=== PATIENT | female | born 1990 | race Caucasian/White ===

== ENCOUNTER 2017-04-18 10:57 | Outpatient (RCR) | payer OTHER ==
[~2017-04-18 10:57] MED LIST: LEVO1TAB9 PO; LOR5/325 PO
--- NOTE | 2017-04-20 10:01 | RADIOLOGY IMAGING REPORT ---
FACILITY: [facility] - [place] PATIENT NAME: Mildred Marino : 1990 MR: [id number] V: [id number] EXAM DATE: ORDERING PHYSICIAN: DELILAH BALLARD TECHNOLOGIST: Location: [facility] - [place] Patient: Mildred Marino : 1990 Visit/Account:[id number] Date of Sevice: 04/20/2017 MRI RIGHT FOOT W/O CONTRAST HISTORY: Pain. Evaluate for stress reaction. ADDITIONAL HISTORY: None. TECHNIQUE: Multiplanar multisequence magnetic resonance imaging of the right foot without intraveno us contrast. CONTRAST: None. COMPARISON: None. FINDINGS: Bones and joints: Mild bone marrow edema at the plantar aspect of the base of the third metatarsal. N o bone marrow edema within the adjacent lateral cuneiform. TMT joints are well aligned. Joint effusion: Negative Extensor tendons: Negative Flexor tendons: Negative Visualized plantar fascia: Negative Soft tissues: Negative IMPRESSION: 1. Mild bone marrow edema within the plantar aspect of the base of the third metatarsal. No bony reich ges within the adjacent lateral cuneiform. Findings more likely secondary to stress reaction rather t mullen early degenerative change. Report Dictated By: Aquiles Matias MD at 04/20/2017 9:38 AM Report E-Signed By: Aquiles Matias MD at 04/20/2017 9:58 AM WSN:[id number]
== END 2017-04-22 18:00 | disposition home or self-care (01) ==
LOC: MRI 10:57 → EDSTATUS 10:57 → MRI 04-22 18:00
PROVIDERS: ATTEND Orthopaedic Surgery
DX: M79.671 Pain in right foot (principal)
CPT/HCPCS: 73718

== ENCOUNTER 2017-07-07 13:40 | Outpatient (RCR) | payer OTHER ==
--- NOTE | 2017-04-23 16:36 | PT INITIAL EVALUATION ---
MEDICAL DIAGNOSIS: Right Foot Stress Reaction TREATMENT DIAGNOSIS: Right Foot Stress Reaction DATE OF ONSET: 03/14/17 SUBJECTIVE: Mildred is a 26 year-old female presenting to physical therapy following a stress reaction injury of her plantar aspect of the base of the third metatarsal. Pt reports that there was no sudden moment of injury, but attributes it to likely prolonged walking over a trip to [place] in January,, or occupational requirements as a nurse. Pt reported that the foot started hurting around the end of February,. Since pt has unloaded the foot per MD recommendation with use of crutches at home and scooter at work , but reports little change in pain status. Pt had recent MRI confirming lingering presence of bone edema. Pt currently rates achy pain at a 1/10 while sitting without pressure on the foot but pain is increased to 4/10 if she is active, or puts weight on the foot. REHAB PROBLEM LIST: Increased Pain Decreased ROM Decreased Strength Decreased Endurance Decreased Function Decreased ADL's Decreased Mobility Decreased Gait PREVIOUS MEDICAL HISTORY: See EMR OCCUPATION: Nurse on Med/Surg floor at [employer] OBJECTIVE: ROM: Ankle ROM (L,R): DF: 92,92, PF: 56, 51, Inversion: 58, 50, Eversion: 35, 26 Posture: Foot posture significant for decreased arch B. Palpation: Pt is tender to palpation along the base of the 3rd, 4th, and 5th metatarsals. Pt is also tender to palpation along the distal aspect of the plantar fascia. Sensation: Sensation intact to light touch, pt denies any numbness or tingling. Special Tests: (-) Lateral compression test, (+) plantar pain with ankle DF and 1st digit ext. Gait: Pt ambulates with R foot elevated on scooter. ASSESSMENT: Pt shows signs and symptoms consistent with stress reaction diagnosis of the base of the 3rd metatarsal as well as with mild plantar fascitis. Physical therapy is indicated to address the above listed impairments and return pt to prior level of function in all ADL's and occupational activities. Short Term Goals In 2 weeks pt will increase R foot ROM to equal to that of the L foot for improved mobility and function with ADL's. In 4 weeks pt will be able to walk 4 laps around the track without increased pain and normal gait mechanics for functional mobility with occupation and ADL' s. In 4 weeks pt will be independent with independent HEP to maintain functional strength and mobility with ADL's and work related activities. Patient's Goals Decrease pain, return to work as a nurse PLAN: Patient to be seen for Manual Therapy/STM/MET Strengthening/condition Ice/Heat Range of Motion Ultrasound Stretching Iontophoresis Neuromuscular Re-ed Closed Chain Program Electrical Stim Gait Trg/Balance Trg Biofeedback Home Exercise Program Mech./Manual Traction Therapeutic Activities 2-3x/Week for 6 Weeks If you have any questions, comments, or concerns about this report or plan, please contact me at . Thank you, Xiomara Bertrand, PT, DPT, CLT MTDD
--- NOTE | 2017-05-19 09:50 | PT PLAN OF CARE ---
Physician: Agusto Woods MD Patient is being seen: 3x/Week Therapist: Xiomara Bertrand, PT, DPT, CLT Medical Diagnosis: Right Foot Stress Reaction Treatment Diagnosis: Right Foot Stress Reaction Date of Onset: 03/14/17 Date of Initial Evaluation: 04/22/17 Date patient was last seen: 05/18/17 Number of treatments: 11 Number of cancellations/No shows: 0 INTERVENTIONS: Manual Therapy/STM/MET Strengthening/condition Ice/Heat Range of Motion Ultrasound Stretching Iontophoresis Neuromuscular Re-ed Closed Chain Program Electrical Stim Gait Trg/Balance Trg Biofeedback Home Exercise Program Mech./Manual Traction Therapeutic Activities GOALS: In 3 weeks pt will increase R foot ROM to equal to that of the L foot for improved mobility and function with ADL's. In Progress In 6 weeks pt will be able to walk 4 laps around the track without increased pain and normal gait mechanics for functional mobility with occupation and ADL' s. In Progress In 6 weeks pt will be independent with independent HEP to maintain functional strength and mobility with ADL's and work related activities. 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 Pt is no longer utilizing the scooter for ambulation and is able to perform 25% weight bearing on the L LE without any increased physiological changes from stress reaction. Pt shows gradual progression towards single crutch use for ADL's. Ankle mobility continues to show improvements with associated improved gait mechanics. Further physical therapy is indicated for this patient to continue progress towards ambulation without AD for functional movement with work related activities. ROM: Ankle ROM (L,R): DF: 9, 5, PF: 60, 50, Inversion: 20, 20, Eversion: 18, 15 Palpation: Pt is tender to palpation along the base of the 3rd, 4th, and 5th metatarsals. Pt is also tender to palpation along the distal aspect of the plantar fascia. Special Tests: (-) Lateral compression test, (+) plantar pain with ankle DF and 1st digit ext. Gait: Pt is able to ambulate 2 laps with a single crutch prior to onset of pain. If you have any questions or concerns, please feel free to contact me at [phone]. Thank you, Xiomara Bertrand, PT, DPT, CLT MTDD
--- NOTE | 2017-06-13 15:01 | PT PLAN OF CARE ---
Physician: Agusto Woods MD Patient is being seen: 3x/Week Therapist: Xiomara Bertrand, PT, DPT, CLT Medical Diagnosis: Right Foot Stress Reaction Treatment Diagnosis: Right Foot Stress Reaction Date of Onset: 03/14/17 Date of Initial Evaluation: 04/22/17 Date patient was last seen: 06/13/17 Number of treatments: 22 Number of cancellations/No shows: 0 INTERVENTIONS: Manual Therapy/STM/MET Strengthening/condition Ice/Heat Range of Motion Ultrasound Stretching Iontophoresis Neuromuscular Re-ed Closed Chain Program Electrical Stim Gait Trg/Balance Trg Biofeedback Home Exercise Program Mech./Manual Traction Therapeutic Activities GOALS: In 3 weeks pt will increase R foot ROM to equal to that of the L foot for improved mobility and function with ADL's. In Progress In 6 weeks pt will be able to walk 4 laps around the track without increased pain and normal gait mechanics for functional mobility with occupation and ADL' s. MET In 6 weeks pt will be independent with independent HEP to maintain functional strength and mobility with ADL's and work related activities. 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 Pt still is occasionally using crutch secondary to fatigue of the R LE with 8 hour work days, however this is rare. Further PT is indicated for this patient to address lingering deficits of strength on the R LE to prevent further injury with return to work as well as to improve functional endurance. ROM: Ankle ROM (L,R): DF: 9, 6, PF: 60, 50, Inversion: 20, 20, Eversion: 18, 18 Palpation: Pt is tender to palpation along the lateral posterior R malleolus Strength: PF: L 5/5, R 3/5 Gait: Pt is able to ambulate 5 laps without use of AD without onset of pain. If you have any questions or concerns, please feel free to contact me at . Thank you, Xiomara Bertrand, PT, DPT, CLT [facility]
--- NOTE | 2017-07-07 16:39 | PT PLAN OF CARE ---
Physician: Agusto Woods MD Patient is being seen: 2-3x/Week Therapist: Xiomara Bertrand, PT, DPT, CLT Medical Diagnosis: Right Foot Stress Reaction Treatment Diagnosis: Right Foot Stress Reaction Date of Onset: 03/14/17 Date of Initial Evaluation: 04/22/17 Date patient was last seen: 07/07/17 Number of treatments: 31 Number of cancellations/No shows: 0 INTERVENTIONS: Manual Therapy/STM/MET Strengthening/condition Ice/Heat Range of Motion Ultrasound Stretching Iontophoresis Neuromuscular Re-ed Closed Chain Program Electrical Stim Gait Trg/Balance Trg Biofeedback Home Exercise Program Mech./Manual Traction Therapeutic Activities GOALS: In 3 weeks pt will increase R foot ROM to equal to that of the L foot for improved mobility and function with ADL's. MET In 6 weeks pt will be able to walk 4 laps around the track without increased pain and normal gait mechanics for functional mobility with occupation and ADL' s. MET In 6 weeks pt will be independent with independent HEP to maintain functional strength and mobility with ADL's and work related activities. 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 At the time of discharge pt reports no pain in the foot or ankle and has returned to work without any problems. Pt is also exercising recreationally without any modifications or onset of pain. Upon discharge pt is to continue with HEP and progressive return to prior level of function and longer work hours. Pt is to follow up with PT if any further problems arise. ROM: Ankle ROM (L,R): DF: 9, 1, PF: 60, 63, Inversion: 20, 20, Eversion: 18, 18 Strength: PF: L 5/5, R 5/5 Gait: Pt is able to ambulate 5 laps without use of AD without onset of pain. If you have any questions or concerns, please feel free to contact me at . Thank you, Xiomara Bertrand PT, DPT, CLT [facility]
== END 2017-07-07 18:00 | disposition home or self-care (01) ==
LOC: PT 13:40
PROVIDERS: ATTEND Orthopaedic Surgery
DX: S92.901A Unspecified fracture of right foot, initial encounter for closed fracture (principal); X50.0XXA Overexertion from strenuous movement or load, initial encounter
CPT/HCPCS: 97161